=== PATIENT | female | born 1985 | race Two or more races ===

== ENCOUNTER 2024-07-13 04:14 | Inpatient (IN) | payer OTHER ==
[~2024-07-13] VITALS: Ht 152.4 cm; Wt 44.3 kg
[2024-07-13] MEDS: ALBUTEROL SULF 2.5 MG/0.5ML(0.5%) NEB SOLN NEB ONE (04:44)
[2024-07-13] MEDS: IPRATROPIUM BROM 0.5 MG/2.5ML INH SOL NEB ONE (04:44)
--- NOTE | 2024-07-13 05:59 | DVH ---
CHEST RADIOGRAPH Indication: SOB Technique: 2 views of the chest were obtained Comparison: None IMPRESSION: The heart appears normal in size. The lungs appear clear without focal airspace opacity, effusion, o r pneumothorax.
[2024-07-13] MEDS: methylPREDNISolone SOD SUCC 125 MG/2 ML VL IM ONE (06:15)
[2024-07-13 07:50] LABS: Basophils # (auto) 0.1 10 ^3/uL (0-0.2); Basophils % (auto) 0.7 % (0.0-2.0); Eosinophils # (auto) 0.9 10 ^3/uL (0-0.8); Eosinophils % (auto) 7.6 % (0.0-7.0); Hematocrit 43.2 % (36.0-46.0); Hemoglobin 14.5 g/dL (12.2-16.2); Lymphocytes # (auto) 1.6 10 ^3/uL (0.4-5.4); Lymphocytes % (auto) 12.9 % (10.0-50.0); Mean Corpuscular Hemoglobin 31.5 pg (28.0-32.0); Mean Corpuscular Hgb Conc. 33.5 g/dL (32.0-36.0); Mean Corpuscular Volume 94.1 fL (80.0-100.0); Monocytes # (auto) 0.3 10 ^3/uL (0-1.3); Monocytes % (auto) 2.2 % (0.0-12.0); Neutrophils # (auto) 9.3 10 ^3/uL (1.6-8.6); Neutrophils % (auto) 76.6 % (37.0-80.0); Platelet Count (auto) 390 10^3/uL (140-450); Red Cell Distribution Width 13.3 % (11.8-14.3); White Blood Cell 12.2 10^3/uL (4.4-10.8)
[2024-07-13 07:56] LABS: Chloride 106 mmol/L (98-107); Potassium 3.6 mmol/L (3.5-5.1); Sodium 139 mmol/L (136-145)
[2024-07-13 07:57] LABS: Anion Gap 5 (5-15); Calcium 9.8 mg/dL (8.7-10.4); Carbon Dioxide 28 mmol/L (20-31)
[2024-07-13 08:02] LABS: BUN/Creatinine Ratio 12.8 (10.0-20.0); Blood Urea Nitrogen 10 mg/dL (9-23)
[2024-07-13 08:10] LABS: Glucose 117 mg/dL (74-106)
--- NOTE | 2024-07-13 08:17 | ED.PDOC ---
SOB-HPI HPI Comments 39 year old female presents to the ED with a chief complaint of shortness of breath onset 3 days. Patient states she has been experiencing shortness of breath for the past 3 days and noticed it worsens with movement. Patient had an inhaler when she was in high school but has not used one since. PMHx asthma. Denies chest pain, abdominal pain, nausea, vomiting, diarrhea, headache, dizziness. No other symptoms or modifying factors present at this time. Chief Complaint: Asthma Time Seen by MD: 07:41 Reviewed notes: Medications, Allergies Information Source: Patient Mode of Arrival: Ambulatory Severity: Moderate Timing: Days Duration: Since onset Context: At Rest PE Risk Factors: None History of: Asthma Prehospital treatment: None Modifying Factors: Nothing Associated Signs and Symptoms: None Radiation: No Radiation Past Medical History PAST MEDICAL HISTORY: Asthma Surgical History: Denies all surgeries WALL ATTENDANT History: No Pertinent WALL ATTENDANT History Family History Family History: Unknown Social History Smoker: Non-Smoker Alcohol: Denies ETOH Use Drugs: Denies Drug Use Lives In: Home Constitutional: reports: fatigue; denies: chills, diaphoresis, fever, malaise, sweats, weakness, others EENTM: denies: blurred vision, double vision, ear bleeding, ear discharge, ear drainage, ear pain, ear ringing, eye pain, eye redness, hearing loss, mouth pain, mouth swelling, nasal discharge, nose bleeding, nose congestion, nose pain, photophobia, tearing, throat pain, throat swelling, voice changes, others Respiratory: reports: shortness of breath; denies: cough, hemoptysis, orthopnea, SOB at rest, SOB with excertion, stridor, wheezing, others Cardiovascular: denies: chest pain, dizzy spells, diaphoresis, Dyspnea on exertion, edema, irregular heart beat, left arm pain, lightheadedness, palpitations, PND, syncope, others Gastrointestinal: denies: abdomen distended, abdominal pain, blood streaked bowels, constipated, diarrhea, dysphagia, difficulty swallowing, hematemesis, melena, nausea, poor appetite, poor fluid intake, rectal bleeding, rectal pain, vomiting, others Genitourinary: denies: abnormal vagina bleeding, burning, dyspareunia, dysuria, flank pain, frequency, hematuria, incontinence, pain, , vagina discharge, urgency, others Neurological: denies: dizziness, fainting, headache, left sided numbness, left sided weakness, numbness, paresthesia, pre-existing deficit, right sided numbness, right sided weakness, seizure, speech problems, tingling, tremors, weakness, others Musculoskeletal: denies: back pain, gout, joint pain, joint swelling, muscle pain, muscle stiffness, neck pain, others Integumetry: denies: bruises, change in color, change in hair/nails, dryness, laceration, lesions, lumps, rash, wounds, others Allergic/Immunocompromised: denies: Difficulty Healing, Frequent Infections, Hives, Itching, others Hematologic/Lymphatic: denies: anemia, blood clots, easy bleeding, easy bruising, swollen glands, others Endocrine: denies: excessive hunger, excessive sweating, excessive thirst, excessive urination, flushing, intolerance to cold, intolerance to heat, unexplained weight gain, unexplained weight loss, others Psychiatric: denies: anxiety, bipolar disorder, depression, hopeless, panic disorder, schizophrenia, sleepless, suicidal, others All Other Systems: Reviewed and Negative Physical Exam General Appearance: Moderate Distress HEENT: Normal ENT Inspection, Pharynx Normal, TMs Normal Neck: Full Range of Motion, Non-Tender, Normal, Normal Inspection Respiratory: Accessory Muscle Use, Respiratory Distress, Wheezing Cardiovascular: No Edema, No JVD, No Murmur, No Gallop, Normal Peripheral Pulses, Regular Rate/Rhythm Breast Exam: Deferred Gastrointestinal: No Organomegaly, Non Tender, No Pulsatile Mass, Normal Bowel Sounds, Soft Genitalia: Deferred Pelvic: Deferred Rectal: Deferred Extremities: No calf tenderness, Normal capillary refill, Normal inspection, Normal range of motion, Non-tender, No pedal edema Musculoskeletal : Apperance: Normal Neurologic: Alert, catalyst supervisor II-XII nml as Tested, No Motor Deficits, Normal Affect, Normal Mood, No Sensory Deficits Cerebellar Function: NOT DONE Reflexes: NOT DONE Skin: Dry, Normal Color, Warm Peripheral Pulses: 3+ Radial (R), 3+ Radial (L) Lymphatic: No Adenopathy Was a procedure done? Was a procedure done?: No Differential Dx Differential Diagnosis: Anxiety, Asthma, Bronchitis, CHF, COPD X-Ray, Labs, Meds, VS Vital Signs Date Time Temp Pulse Resp B/P (MAP) Pulse Ox O2 Delivery O2 Flow Rate FiO2 07/13/24 06:03 98.3 77 18 121/75 (90) 97 98.3 07/13/24 04:45 18 95 Nasal Cannula* 2 28 07/13/24 04:36 98.2 73 22 134/66 (88) 88 07/13/24 04:36 22 88 Room Air* 0 21 Lab Test 07/13/24 07:40 07/13/24 07:36 Range/Units Urine Color Pending Urine Clarity Pending Urine pH Pending Urine Specific [place] Pending Urine Protein Pending Urine Ketones Pending Urine Blood Pending Urine Nitrite Pending Urine Bilirubin Pending Urine Urobilinogen Pending Urine Leukocyte Esterase Pending Urine RBC Pending Urine WBC Pending Urine Squamous Epithelial Cells Pending Urine Bacteria Pending Urine Glucose Pending White Blood Count 12.2 H 4.4-10.8 10^3/uL Red Blood Count 4.60 4.0-5.20 10^6/uL Hemoglobin 14.5 12.2-16.2 g/dL Hematocrit 43.2 36.0-46.0 % Mean Corpuscular Volume 94.1 80.0-100.0 fL Mean Corpuscular Hemoglobin 31.5 28.0-32.0 pg Mean Corpuscular Hemoglobin Concent 33.5 32.0-36.0 g/dL Red Cell Distribution Width 13.3 11.8-14.3 % Platelet Count 390 140-450 10^3/uL Mean Platelet Volume 6.3 L 6.9-10.8 fL Neutrophils (%) (Auto) 76.6 37.0-80.0 % Lymphocytes (%) (Auto) 12.9 10.0-50.0 % Monocytes (%) (Auto) 2.2 0.0-12.0 % Eosinophils (%) (Auto) 7.6 H 0.0-7.0 % Basophils (%) (Auto) 0.7 0.0-2.0 % Neutrophils # (Auto) 9.3 H 1.6-8.6 10 ^3/uL Lymphocytes # (Auto) 1.6 0.4-5.4 10 ^3/uL Monocytes # (Auto) 0.3 0-1.3 10 ^3/uL Eosinophils # (Auto) 0.9 H 0-0.8 10 ^3/uL Basophils # (Auto) 0.1 0-0.2 10 ^3/uL Nucleated Red Blood Cells 0.0 % D-Dimer, Quantitative 0.46 0.0-0.49 mg/L FEU Sodium Level 139 136-145 mmol/L Potassium Level 3.6 3.5-5.1 mmol/L Chloride Level 106 98-107 mmol/L Carbon Dioxide Level 28 20-31 mmol/L Anion Gap 5 5-15 Blood Urea Nitrogen 10 9-23 mg/dL Creatinine 0.78 0.550-1.02 mg/dL Glomerular Filtration Rate Calc 100 >90 mL/min BUN/Creatinine Ratio 12.8 10.0-20.0 Serum Glucose 117 H 74-106 mg/dL Calcium Level 9.8 8.7-10.4 mg/dL Current Medications Medications (Trade) Dose Ordered Sig/Teri Route Start Time Stop Time Status Last Admin Ipratropium [place] (Atrovent Medneb) 0.5 mg ONCE ONCE NEB 07/13/24 04:30 07/13/24 04:31 DC 07/13/24 04:44 Albuterol (Ventolin Medneb) 2.5 mg ONCE ONCE NEB 07/13/24 04:30 07/13/24 04:31 DC 07/13/24 04:44 Methylprednisolone Sodium Succinate (Solu Medrol) 125 mg ONCE ONCE IM 07/13/24 05:15 07/13/24 05:16 DC 07/13/24 06:15 Patient alert. Complaining of shortness a breath. Was given breathing treatment. Placed on oxygen. Using accessory muscles. WBC elevated. Early pneumonia. Pneumonitis. Was given steroid. Was given Rocephin. Was given azithromycin. Reviewed her history. Explained to the patient. Continue cardiac monitoring. Time of 1ST Reevaluation: 08:11 Reevaluation 1ST: Unchanged Patient Education/Counseling: Diagnosis, Treatment, Prognosis Family Education/Counseling: No Family Present Additional Information I reviewed the following notes from patient's past medical encounters: none The following tests were ordered, and results were reviewed by me: XY CHEST 2 VIEWS, CBC, D-DIMER, UA, BMP I reviewed and agreed with the following test results read by other providers: XY CHEST 2 VIEWS I discussed treatment and results with medical personnel and patient Departure 1 Departure Time of Disposition: 09:38 Impression: Primary Impression: Acute respiratory failure Qualified Codes: J96.01 - Acute respiratory failure with hypoxia Additional Impressions: Pneumonitis Asthma exacerbation Qualified Codes: J45.41 - Moderate persistent asthma with (acute) exacerbation Disposition: ADMITTED INPATIENT Admit to: Med Surg Condition: Guarded Critical Care Note Critical Care Time?: Yes (90 min-critical care time only) Stability Stability form required: No Heart Score Heart Score: Heart Score Response (Comments) Value History N/A 0 EKG N/A 0 Age N/A 0 Risk Factors N/A 0 Troponin N/A 0 Total 0 I personally scribed for GUERITA ALCARAZ MD ([email or web address]) on 07/13/24 at 08:17. Electronically submitted by Evonne Nguyen ([email or web address]). I personally scribed for GUERITA ALCARAZ MD ([email or web address]) on 07/13/24 at 09:10. Electronically submitted by Evonne Nguyen ([email or web address]). GUERITA ALCARAZ MD Jul 13, 2024 08:17
[2024-07-13 09:34] LABS: Urine Clarity TURBID (Clear); Urine Color DARK-RED (Yellow); Urine Specific Gravity 1.033 (1.001-1.035)
[2024-07-13 09:35] LABS: Urine Blood 3+ /uL (Negative)
[2024-07-13 09:37] LABS: Urine WBC Clumps FEW /hpf (None Seen)
[2024-07-13 09:38] LABS: Urine Bacteria FEW /hpf (None Seen); Urine Squamous Epithelial Cell FEW /hpf (<5); Urine WBC MODERATE /hpf (0 - 5)
[2024-07-13 09:39] LABS: Urine Protein, UAD 2+ (Negative); Urine Urobilinogen Normal (Negative)
[2024-07-13] MEDS: AZITHROMYCIN 500MG/ 250ML 250 ML IV ONE (10:27)
[2024-07-13] MEDS: cefTRIAXone 1GM/50ML D5W 50 ML IV ONE (10:27)
[2024-07-13 10:31] VITALS: O2SAT 99
[2024-07-13] MEDS ORDERED: ALBUTEROL SULF 2.5 MG/0.5ML(0.5%) NEB SOLN NEB PRN (14:30)
[2024-07-13] MEDS ORDERED: IPRATROPIUM BROM 0.5 MG/2.5ML INH SOL NEB PRN (14:30)
--- NOTE | 2024-07-13 14:38 | DVHHP2 ---
History of Present Illness Reason for Visit: Shortness of breath History of Present Illness This 39-year-old female with past medical history of asthma, presents in the ED with a chief complaint of shortness of breath. The patient reports progressive shortness of breath started three days ago. Denies fever, dizziness, chest p ain, palpitations, dyspnea on exertion, abdominal pain, nausea, hematuria, or flank pain. Patient states that she recently quit smoking cigarettes 10 days ago. Past medical history of smoking 1 pack per day for 25 years. Also reports ex marijuana use. Past Medical History Asthma Past Surgical History Denies Family History Reviewed, non-contributory to the management of this case. Past Social History Recently quit tobacco Ex marijuana use Denies EtOH use Review of Systems Constitutional: Yes: Malaise; No: Fever, Chills, Sweats, Weakness, Other Eyes: No: Pain, Vision change, Conjunctivae inflammation, Eyelid inflammation, Other, Redness ENT: No: Ear pain, Ear discharge, Nose pain, Nose discharge, Nose congestion, Mouth pain, Mouth swelling, Throat pain, Throat swelling, Other Respiratory: Shortness of breath; No: Cough, Dry, SOB with excertion, Wheezing, Hemoptysis, Pleuritic Pain, Sputum, Wheezing, Other Cardiovascular: No: Chest Pain, Palpitations, Orthopnea, Paroxysmal Noc. Dyspnea, Edema, Lt Headedness, Other Gastrointestinal: No: Nausea, Vomiting, Abdominal Pain, Diarrhea, Constipation, Melena, Hematochezia, Other Genitourinary: No Dysuria, No Frequency, No Incontinence, No Hematuria, No Retention, No Other Musculoskeletal: No: other, neck pain, shoulder pain, arm pain, back pain, hand pain, leg pain, foot pain Skin: No: Rash, Lesions, Jaundice, Bruising, Other Neurological: No: Weakness, Numbness, Incoordination, Change in speech, Confusion, Seizures, Other Allergies: Coded Allergies: NO KNOWN ALLERGIES (Unverified , 07/13/24) Exam Vital Signs Vital Signs Date Time Temp Pulse Resp B/P (MAP) Pulse Ox O2 Delivery O2 Flow Rate FiO2 07/13/24 10:31 99 Nasal Cannula* 2 28 07/13/24 10:29 98.5 80 18 136/87 (103) 98.5 General Appearance: Alert, Oriented X3, Cooperative, mild distress HEENT: Atraumatic, PERRLA, EOMI, Mucous membr. moist/pink Respiratory: Other (Diminished lung sounds) Cardiovascular: Regular rate, Normal S1, Normal S2, No murmurs Abdominal: Normal bowel sounds, Soft, No tenderness, No hepatospenomegaly Extremities: No clubbing, No cyanosis, No edema, Normal pulses, No tenderness/swelling Skin: No rashes, No breakdown, No significant lesion Neuro: Normal gait, Normal speech, Strength at 5/5 X4 ext, Normal tone Psych/Mental Status: Mental status NL Labs/Xrays Labs Test 07/13/24 07:40 07/13/24 07:36 Range/Units Urine Color Dark-red Yellow Urine Clarity Turbid H Clear Urine pH 6.0 5.0-9.0 Urine Specific [place] 1.033 1.001-1.035 Urine Protein 2+ H Negative Urine Ketones Negative Negative Urine Blood 3+ H Negative /uL Urine Nitrite Negative Negative Urine Bilirubin Negative Negative Urine Urobilinogen Normal Negative mg/dL Urine Leukocyte Esterase 2+ H Negative /uL Urine RBC Many 0 - 4 /hpf Urine WBC Moderate 0 - 5 /hpf Urine WBC Clumps Few None Seen /hpf Urine Squamous Epithelial Cells Few <5 /hpf Urine Bacteria Few H None Seen /hpf Urine Glucose Normal Normal mg/dL White Blood Count 12.2 H 4.4-10.8 10^3/uL Red Blood Count 4.60 4.0-5.20 10^6/uL Hemoglobin 14.5 12.2-16.2 g/dL Hematocrit 43.2 36.0-46.0 % Mean Corpuscular Volume 94.1 80.0-100.0 fL Mean Corpuscular Hemoglobin 31.5 28.0-32.0 pg Mean Corpuscular Hemoglobin Concent 33.5 32.0-36.0 g/dL Red Cell Distribution Width 13.3 11.8-14.3 % Platelet Count 390 140-450 10^3/uL Mean Platelet Volume 6.3 L 6.9-10.8 fL Neutrophils (%) (Auto) 76.6 37.0-80.0 % Lymphocytes (%) (Auto) 12.9 10.0-50.0 % Monocytes (%) (Auto) 2.2 0.0-12.0 % Eosinophils (%) (Auto) 7.6 H 0.0-7.0 % Basophils (%) (Auto) 0.7 0.0-2.0 % Neutrophils # (Auto) 9.3 H 1.6-8.6 10 ^3/uL Lymphocytes # (Auto) 1.6 0.4-5.4 10 ^3/uL Monocytes # (Auto) 0.3 0-1.3 10 ^3/uL Eosinophils # (Auto) 0.9 H 0-0.8 10 ^3/uL Basophils # (Auto) 0.1 0-0.2 10 ^3/uL Nucleated Red Blood Cells 0.0 % D-Dimer, Quantitative 0.46 0.0-0.49 mg/L FEU Sodium Level 139 136-145 mmol/L Potassium Level 3.6 3.5-5.1 mmol/L Chloride Level 106 98-107 mmol/L Carbon Dioxide Level 28 20-31 mmol/L Anion Gap 5 5-15 Blood Urea Nitrogen 10 9-23 mg/dL Creatinine 0.78 0.550-1.02 mg/dL Glomerular Filtration Rate Calc 100 >90 mL/min BUN/Creatinine Ratio 12.8 10.0-20.0 Serum Glucose 117 H 74-106 mg/dL Calcium Level 9.8 8.7-10.4 mg/dL PROCEDURE(s): CXR2 - CHEST TWO VIEWS ROUTINE REASON: SOB ORDER NUMBER(s): [id number], ACCESSION NUMBER(s): [id number] CHEST RADIOGRAPH Indication: SOB Technique: 2 views of the chest were obtained Comparison: None IMPRESSION: The heart appears normal in size. The lungs appear clear without focal airspace opacity, effusion, or pneumothorax. Assessment/Plan Assessment/Plan # Acute on chronic respiratory failure # asthma exacerbation O2 supplement to keep O2 Sat >92% Med neb treatment Steroids Pulmonary consult Chest x-ray in a.m. # acute UTI Ceftriaxone blood and Urine culture # Ex-tobacco and marijuana use, quit tobacco 10 days ago # hx of tobacco abuse 20 pack years Counseled Medical plan discussed with patient Plan discussed with: Patient My Orders Orders - PAOLA NIELSON OUTSOLE COMPRESSOR Procedure Category Date Status Time Admit ADMIT 07/13/24 Transmitted 14:28 Code Status CODE 07/13/24 Transmitted 14:28 Complete Blood Count LAB 07/14/24 Verified 04:00 Comprehensive LAB 07/14/24 Verified Metabolic Panel 04:00 Cardiac DIET 07/13/24 Transmitted Diet-2gna,Lofat,Lochol Dinner Condition: Fair KAL 07/13/24 In Process 14:28 Albuterol Medneb PHA 07/13/24 Transmitted (Ventolin Medneb) 14:30 Albuterol Medneb PHA 07/13/24 Transmitted (Ventolin Medneb) 18:00 Ipratropium Medneb PHA 07/13/24 Transmitted (Atrovent Medneb) 14:30 Ipratropium Medneb PHA 07/13/24 Transmitted (Atrovent Medneb) 18:00 Urine Bacterial MIGUEL ANGEL 07/13/24 Transmitted Culture 14:28 Blood Culture MIGUEL ANGEL 07/13/24 Transmitted 14:28 Ceftriaxone Ivpb PHA 07/14/24 Transmitted Rocephin 09:00 Methylprednisolone PHA 07/14/24 Transmitted Sod Succ (Solu Medrol 10:00 Chest Portable XY 07/14/24 Transmitted 04:00 Date of Service: Jul 13, 2024 Billing Provider: PAOLA NIELSON Common Visit Codes: [id number] INP/OBS CARE (HIGH) PAOLA NIELSON Jul 13, 2024 14:38
[2024-07-13 15:11] VITALS: BP 136/87; PULSE 80; RESP 18; TEMP 98.3; O2SAT 99
[2024-07-13 18:30] VITALS: PULSE 83; RESP 18; O2SAT 91
[2024-07-13] MEDS: IPRATROPIUM BROM 0.5 MG/2.5ML INH SOL NEB SCH (18:32)
[2024-07-13] MEDS: ALBUTEROL SULF 2.5 MG/0.5ML(0.5%) NEB SOLN NEB SCH (18:32)
[2024-07-13 18:34] VITALS: O2SAT 91
[2024-07-13 18:38] VITALS: PULSE 86; RESP 18; O2SAT 96
[2024-07-13 23:10] VITALS: O2SAT 99
--- NOTE | 2024-07-13 23:29 | DVHINCON2 ---
Date of service: Jul 13, 2024 Referring Physician Romario Valdez NP Reason for Consultation AHRF, asthma exacerbation History of Present Illness A 39-year-old woman with past medical history of asthma, presents to the ED with a chief complaint of shortness of breath. The patient reports progressive shortness of breath starting 3 days ago. Denies dyspnea on exertion. Denies other associated sx including fever, dizziness, chest pain, palpitations or abdominal pain. Patient recently quit smoking cigarettes 10 days ago, hx of smoking 1 pack per day for 25 years. Patient was admitted for further care and pulmonary consultation is requested for evaluation and management due to the above findings. Review of Systems: 14-point review of systems negative unless otherwise noted above. Past Medical History: Asthma Past Surgical History: Denies Medications: Reviewed. Allergies: No known drug allergies. Family History: No family history of premature CAD. No family history of lung disorders. Social History: Former smoker - recently quit smoking cigarettes 10 days ago. Hx of smoking 1 pack per day for 25 years No alcohol use. Prior hx of marijuana use. Allergies: Coded Allergies: NO KNOWN ALLERGIES (Unverified , 07/13/24) Home Meds Active Scripts Levofloxacin Hemihydrate (LEVAQUIN 500 MG) 500 Mg Tab, 1 TAB PO DAILY for 5 Days, #5 TAB Prov:ROMARIO VALDEZ NP 07/15/24 Albuterol Sulfate (VENTOLIN MDI) 90 Mcg Ih, 90 MCG IN Q4HP PRN for 30 Days, #1 INH Two puffs q.4 hours for acute asthma Prov:ROMARIO VALDEZ NP 07/15/24 Prednisone (Prednisone) 20 Mg Tab, 20 MG PO DAILY for 5 Days, #5 MG Prov:ROMARIO VALDEZ [employer] 07/15/24 Current Medications Current Medications Medications (Trade) Dose Ordered Sig/Teri Route PRN Reason Start Time Stop Time Status Last Admin Albuterol (Ventolin Medneb) 2.5 mg Q4HPRN PRN NEB SHORTNESS OF BREATH 07/13/24 14:30 Albuterol (Ventolin Medneb) 2.5 mg Q6HR NEB 07/13/24 18:00 07/13/24 18:32 Ipratropium [place] (Atrovent Medneb) 0.5 mg Q4HPRN PRN NEB SHORTNESS OF BREATH 07/13/24 14:30 Ipratropium [place] (Atrovent Medneb) 0.5 mg Q6HR NEB 07/13/24 18:00 07/13/24 18:32 Ceftriaxone Sodium 50 ml @ 100 mls/hr DAILY@09 IV 07/14/24 09:00 Methylprednisolone Sodium Succinate (Solu Medrol) 60 mg BID IV 07/14/24 10:00 Vital Signs Vital Signs Date Time Temp Pulse Resp B/P (MAP) Pulse Ox O2 Delivery O2 Flow Rate FiO2 07/13/24 21:24 97.7 98 20 100/74 (83) 94 97.7 07/13/24 18:34 Room Air* 0 21 Physical Exam Gen.: Patient lying in bed in no apparent distress. On supplemental oxygen. Head: Normocephalic, atraumatic. Eyes: EOMI/PERRLA. Ears: Normal hearing. Normal anatomy. Neck/trachea: Trachea midline, supple. Nose: Normal external anatomy. Mouth: Moist mucous membranes. Chest: Decreased air entry bilaterally. No wheezing or rhonchi. Cardiovascular: Positive S1, positive S2. Regular rate and rhythm. Abdomen: Positive bowel sounds in all 4 quadrants. Soft, non-tender, non- distended. : Deferred. Rectal: Deferred. Skin: Warm, dry. Intact. Extremities: 2+ radial pulses bilaterally. No lower extremity edema. Neuro: Awake, alert, oriented x3. No gross motor or sensory deficits. Cranial nerves II through XII intact. Gait not assessed. Labs/Diagnostic Data Labs Test 07/13/24 07:40 07/13/24 07:36 Range/Units Urine Color Dark-red Yellow Urine Clarity Turbid H Clear Urine pH 6.0 5.0-9.0 Urine Specific [place] 1.033 1.001-1.035 Urine Protein 2+ H Negative Urine Ketones Negative Negative Urine Blood 3+ H Negative /uL Urine Nitrite Negative Negative Urine Bilirubin Negative Negative Urine Urobilinogen Normal Negative mg/dL Urine Leukocyte Esterase 2+ H Negative /uL Urine RBC Many 0 - 4 /hpf Urine WBC Moderate 0 - 5 /hpf Urine WBC Clumps Few None Seen /hpf Urine Squamous Epithelial Cells Few <5 /hpf Urine Bacteria Few H None Seen /hpf Urine Glucose Normal Normal mg/dL White Blood Count 12.2 H 4.4-10.8 10^3/uL Red Blood Count 4.60 4.0-5.20 10^6/uL Hemoglobin 14.5 12.2-16.2 g/dL Hematocrit 43.2 36.0-46.0 % Mean Corpuscular Volume 94.1 80.0-100.0 fL Mean Corpuscular Hemoglobin 31.5 28.0-32.0 pg Mean Corpuscular Hemoglobin Concent 33.5 32.0-36.0 g/dL Red Cell Distribution Width 13.3 11.8-14.3 % Platelet Count 390 140-450 10^3/uL Mean Platelet Volume 6.3 L 6.9-10.8 fL Neutrophils (%) (Auto) 76.6 37.0-80.0 % Lymphocytes (%) (Auto) 12.9 10.0-50.0 % Monocytes (%) (Auto) 2.2 0.0-12.0 % Eosinophils (%) (Auto) 7.6 H 0.0-7.0 % Basophils (%) (Auto) 0.7 0.0-2.0 % Neutrophils # (Auto) 9.3 H 1.6-8.6 10 ^3/uL Lymphocytes # (Auto) 1.6 0.4-5.4 10 ^3/uL Monocytes # (Auto) 0.3 0-1.3 10 ^3/uL Eosinophils # (Auto) 0.9 H 0-0.8 10 ^3/uL Basophils # (Auto) 0.1 0-0.2 10 ^3/uL Nucleated Red Blood Cells 0.0 % D-Dimer, Quantitative 0.46 0.0-0.49 mg/L FEU Sodium Level 139 136-145 mmol/L Potassium Level 3.6 3.5-5.1 mmol/L Chloride Level 106 98-107 mmol/L Carbon Dioxide Level 28 20-31 mmol/L Anion Gap 5 5-15 Blood Urea Nitrogen 10 9-23 mg/dL Creatinine 0.78 0.550-1.02 mg/dL Glomerular Filtration Rate Calc 100 >90 mL/min BUN/Creatinine Ratio 12.8 10.0-20.0 Serum Glucose 117 H 74-106 mg/dL Calcium Level 9.8 8.7-10.4 mg/dL Assessment Impression Acute hypoxic respiratory failure Acute exacerbation of Asthma Eosinophilic Asthma Hx of nicotine dependence Plan: Supplemental oxygen 2 LPM via [place] Titrate to keep O2 sats above 92%. Taper O2 as tolerated. Continue bronchodilators. IV steroids Monitor renal function. Monitor electrolytes. Supplement as necessary. Monitor ins and outs. DVT prophylaxis. Prognosis: Poor given patient's multiple co-morbidities. Rest of plan per hospitalist and other consultants. Thank you, MELCHOR Valdez, for allowing me to participate in this patient's care. Further recommendations will depend on the patient's clinical course. Please do not hesitate to contact me if you have any questions or concerns. This medical document was created using an electronic medical record system with [employer] dictation system. Although these documentations are being carefully reviewed, there may still be some phonetic and typographical changes. The errors are purely typographical, due to imperfection on the software program, and do not reflect any compromise in the patient's medical care. Plan discussed with: Patient, Other (RN, MELCHOR Valdez/) TORY FINCH MD Jul 13, 2024 23:29
[2024-07-14] VITALS (12 sets, daily range): BP systolic 97–111; BP diastolic 59–60; PULSE 76–118; RESP 12–22; TEMP 98–98.2; O2SAT 92–99
[2024-07-14] MEDS: methylPREDNISolone SOD SUCC 125 MG/2 ML VL IV SCH (00:14)
--- NOTE | 2024-07-14 00:38 | DVH ---
CHEST RADIOGRAPH Indication: sob Technique: Single frontal view of the chest was obtained Comparison: None FINDINGS: Lines and Tubes: None Lungs: Clear Pleura: No effusion. No pneumothorax. Cardiomediastinal contours: Unremarkable Bones: Unremarkable IMPRESSION: 1. Clear lungs.
[2024-07-14] MEDS: ALBUTEROL SULF 2.5 MG/0.5ML(0.5%) NEB SOLN NEB SCH (01:48)
[2024-07-14] MEDS: IPRATROPIUM BROM 0.5 MG/2.5ML INH SOL NEB SCH ×2 (01:48→18:59)
[2024-07-14 06:52] LABS: Alanine Aminotransferase 23 U/L (7-40); Albumin 4.6 g/dL (3.2-4.8); Alkaline Phosphatase 57 U/L (46-116); Anion Gap 9 (5-15); Aspartate Aminotransferase 22 U/L (13-40); BUN/Creatinine Ratio 22.5 (10.0-20.0); Blood Urea Nitrogen 16 mg/dL (9-23); Calcium 9.9 mg/dL (8.7-10.4); Carbon Dioxide 24 mmol/L (20-31); Potassium 3.9 mmol/L (3.5-5.1); Sodium 141 mmol/L (136-145)
[2024-07-14 06:53] LABS: Total Protein 7.2 g/dL (5.7-8.2)
[2024-07-14 07:02] LABS: Bilirubin, Total 1.2 mg/dL (0.2-1.0); Chloride 108 mmol/L (98-107); Glucose 124 mg/dL (74-106)
[2024-07-14 07:13] LABS: Basophils # (auto) 0 10 ^3/uL (0-0.2); Basophils % (auto) 0.1 % (0.0-2.0); Eosinophils # (auto) 0 10 ^3/uL (0-0.8); Hemoglobin 13.6 g/dL (12.2-16.2); Lymphocytes # (auto) 0.6 10 ^3/uL (0.4-5.4); Mean Corpuscular Hemoglobin 31.2 pg (28.0-32.0); Mean Corpuscular Hgb Conc. 33.2 g/dL (32.0-36.0); Mean Corpuscular Volume 93.8 fL (80.0-100.0); Monocytes # (auto) 0.1 10 ^3/uL (0-1.3); Monocytes % (auto) 0.9 % (0.0-12.0); Neutrophils # (auto) 11.9 10 ^3/uL (1.6-8.6); Platelet Count (auto) 358 10^3/uL (140-450); Red Blood Cells 4.37 10^6/uL (4.0-5.20); Red Cell Distribution Width 13.1 % (11.8-14.3); White Blood Cell 12.7 10^3/uL (4.4-10.8)
[2024-07-14] MEDS: cefTRIAXone 1GM/50ML D5W 50 ML IV SCH (09:25)
[2024-07-14] MEDS ORDERED: methylPREDNISolone SOD SUCC 125 MG/2 ML VL IV SCH (10:00)
[2024-07-14] MEDS: BUDESONIDE (INHALATION) 0.5 MG/2 ML NEB NEB SCH (10:43)
--- NOTE | 2024-07-14 13:25 | DVHPN2 ---
Subjective States that her shortness of breath has improved. Does report having palpitations intermittently. Reviewed: Care Plan, H&P, Labs, Medications, Previous Orders Changes from previous H/P or p: Changes General: Per HPI Eyes: No Pain, No Vision change, No Conjunctivae inflammation, No Eyelid inflammation, No Other, No Redness ENT: No Ear pain, No Ear discharge, No Nose pain, No Nose discharge, No Nose congestion, No Mouth pain, No Mouth swelling, No Throat pain, No Throat swelling, No Other Cardiovascular: No Chest Pain, No Palpitations, No Orthopnea, No Paroxysmal Noc. Dyspnea, No Edema, No Lt Headedness, No Other Respiratory: No Cough, No Dry; Shortness of breath; No SOB with excertion, No Wheezing, No Hemoptysis, No Pleuritic Pain, No Sputum, No Other Gastrointestinal: No Nausea, No Vomiting, No Abdominal Pain, No Diarrhea, No Constipation, No Melena, No Hematochezia, No Other Genitourinary: No Dysuria, No Frequency, No Incontinence, No Hematuria, No Retention, No Other Musculoskeletal: No other, No neck pain, No shoulder pain, No arm pain, No back pain, No hand pain, No leg pain, No foot pain Skin: No Rash, No Lesions, No Jaundice, No Bruising, No Other Objective Vitals Vital Signs Date Time Temp Pulse Resp B/P (MAP) Pulse Ox O2 Delivery O2 Flow Rate FiO2 07/14/24 10:47 83 18 98 07/14/24 10:42 Nasal Cannula 2.0 07/14/24 10:42 28 07/14/24 09:03 98.0 97/59 (72) 98.0 General Appearance: Alert, Oriented X3, Cooperative, mild distress HEENT: Atraumatic, PERRLA Lungs: Clear to auscultation, Normal air movement Cardiovascular: Normal S1, Normal S2, Other (Sinus tachycardia) Abdomen: Normal bowel sounds, Soft, No tenderness, No hepatospenomegaly Genitourinary: No Apparent Abnormalities Neuro: Normal speech Psych/Mental Status: Mental status NL, Mood NL Medications Current Medications Medications Dose Ordered Sig/Teri Route Start Time Stop Time Status Last Admin Dose Admin Albuterol 2.5 mg Q4HPRN PRN NEB 07/13/24 14:30 Ipratropium [place] 0.5 mg Q4HPRN PRN NEB 07/13/24 14:30 Ceftriaxone Sodium 50 ml @ 100 mls/hr DAILY@09 IV 07/14/24 09:00 07/14/24 09:25 100 MLS/HR Albuterol 2.5 mg Q4HR NEB 07/14/24 02:00 07/14/24 10:42 2.5 MG Methylprednisolone Sodium Succinate 60 mg Q6HR IV 07/14/24 00:00 07/14/24 12:13 60 MG Budesonide 0.5 mg BID NEB 07/14/24 10:00 07/14/24 10:43 0.5 MG Ipratropium [place] 0.5 mg Q4HR NEB 07/14/24 02:00 07/14/24 10:43 0.5 MG Laboratory Results Laboratory Tests 07/14/24 05:34 Chemistry Test 07/14/24 05:34 Albumin 4.6 g/dL (3.2-4.8) Calcium Level 9.9 mg/dL (8.7-10.4) Total Protein 7.2 g/dL (5.7-8.2) LFT Test 07/14/24 05:34 Alanine Aminotransferase (ALT) 23 U/L (7-40) Alkaline Phosphatase 57 U/L (46-116) Aspartate Amino Transferase (AST) 22 U/L (13-40) Total Bilirubin 1.2 mg/dL (0.2-1.0) H Urinalysis Test 07/13/24 07:40 Urine Color Dark-red (Yellow) Urine Clarity Turbid (Clear) H Urine pH 6.0 (5.0-9.0) Urine Specific [place] 1.033 (1.001-1.035) Urine Protein 2+ (Negative) H Urine Ketones Negative (Negative) Urine Blood 3+ /uL (Negative) H Urine Nitrite Negative (Negative) Urine Bilirubin Negative (Negative) Urine Urobilinogen Normal mg/dL (Negative) Urine Leukocyte Esterase 2+ /uL (Negative) H Urine RBC Many /hpf (0 - 4) Urine WBC Moderate /hpf (0 - 5) Urine WBC Clumps Few /hpf (None Seen) Urine Squamous Epithelial Cells Few /hpf (<5) Urine Bacteria Few /hpf (None Seen) H Urine Glucose Normal mg/dL (Normal) Microbiology Microbiology Date/Time Source Procedure Growth Status 07/13/24 07:40 Voided Urine Urine Culture - Preliminary Resulted Labs and/or images reviewed: Labs reviewed by me, Image(s) reviewed by me Assessment/Plan Assessment/Plan Impression: -acute hypoxic respiratory failure -asthma exacerbation -history of nicotine dependence -marijuana use Plan: -assessed patient, reports that her dyspnea has improved. Patient was found to be tachycardic with a heart rate reaching 140 beats per minute with patient having verbal communication. Also reports having mild symptoms of palpitations. Patient reports that her wheezing has resolved. -stop IV Solu-Medrol, transitioned to prednisone 40 mg p.o. daily -stop albuterol, switched to Xopenex q.6 hours with Atrovent -continue Pulmicort -1 L normal saline -continue antibiotic therapy with Rocephin -reassess for discharge in a.m. Total time spent with patient discussing and formulating plan of care: 35 minutes. This medical document was created using an electronic medical record system with [employer] dictation system. Although this document has been carefully reviewed, there may still be some phonetic and typographical errors. These areas are purely typographical due to imperfections of the software programs, and do not reflect any compromise in the patient's medical care. Plan discussed with: Patient, Other (RN) Date of Service: Jul 14, 2024 Billing Provider: ROMEO VALDEZ NP Common Visit Codes: [id number] INP/OBS CARE(HIGH) ROMEO VALDEZ NP Jul 14, 2024 13:25
[2024-07-14] MEDS: SODIUM CHLORIDE 0.9% 1,000 ML IV ONE (13:30)
[2024-07-14] MEDS: LEVALBUTEROL HCL 1.25 MG/3 ML NEB NEB SCH (18:59)
--- NOTE | 2024-07-14 23:55 | DVHPN2 ---
Progress Note - Dictate Date Seen: Jul 14, 2024 Medical Necessity Reason Pt with a Central, PICC or Fol: No Subjective Patient seen and examined at bedside. Remains on supplemental oxygen Overnight events reviewed. vital signs Vital Sign Date Time Temp Pulse Resp B/P (MAP) Pulse Ox O2 Delivery O2 Flow Rate FiO2 07/14/24 20:00 118 18 95 Room Air* 0 21 07/14/24 18:00 98/63 (75) 07/14/24 09:03 98.0 98.0 medications Current Medications Medications Dose Ordered Sig/Teri Route Start Time Stop Time Status Last Admin Dose Admin Albuterol 2.5 mg Q4HPRN PRN NEB 07/13/24 14:30 Ceftriaxone Sodium 50 ml @ 100 mls/hr DAILY@09 IV 07/14/24 09:00 07/14/24 09:25 100 MLS/HR Budesonide 0.5 mg BID NEB 07/14/24 10:00 07/14/24 10:43 0.5 MG Ipratropium [place] 0.5 mg Q4HR NEB 07/14/24 02:00 07/14/24 10:43 0.5 MG Prednisone 40 mg DAILY PO 07/15/24 10:00 Levalbuterol HCl 0.625 mg Q6HR NEB 07/14/24 18:00 07/14/24 18:59 0.625 MG Ipratropium [place] 0.5 mg Q6HR NEB 07/14/24 18:00 07/14/24 18:59 0.5 MG objective Gen.: Patient lying in bed in no apparent distress. On supplemental oxygen. Head: Normocephalic, atraumatic. Eyes: EOMI/PERRLA. Ears: Normal hearing. Normal anatomy. Neck/trachea: Trachea midline, supple. Nose: Normal external anatomy. Mouth: Moist mucous membranes. Chest: Decreased air entry bilaterally. No wheezing or rhonchi. Cardiovascular: Positive S1, positive S2. Regular rate and rhythm. Abdomen: Positive bowel sounds in all 4 quadrants. Soft, non-tender, non- distended. : Deferred. Rectal: Deferred. Skin: Warm, dry. Intact. Extremities: 2+ radial pulses bilaterally. No lower extremity edema. Neuro: Awake, alert, oriented x3. No gross motor or sensory deficits. Cranial nerves II through XII intact. Gait not assessed. 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 Rest of plan as noted below. Plan: Supplemental oxygen Titrate to keep O2 sats above 92%. Continue bronchodilators. IV steroids Monitor renal function. Monitor electrolytes. Supplement as necessary. Monitor ins and outs. DVT prophylaxis. Prognosis: Poor given patient's multiple co-morbidities. Rest of plan per hospitalist and other consultants. Thank you, MELCHOR Manzano, for allowing me to participate in this patient's care. Further recommendations will depend on the patient's clinical course. Please do not hesitate to contact me if you have any questions or concerns. This medical document was created using an electronic medical record system with [employer] computerized dictation system. Although these documentations are being carefully reviewed, there may still be some phonetic and typographical changes. The errors are purely typographical, due to imperfection on the software program, and do not reflect any compromise in the patient's medical care. Plan discussed with: Patient, Other (RN) TORY FINCH MD Jul 14, 2024 23:55
[2024-07-15] VITALS (9 sets, daily range): BP systolic 103–111; BP diastolic 60–75; PULSE 77–102; RESP 14–17; TEMP 98.2–98.4; O2SAT 95–100
[2024-07-15] MEDS ORDERED: PRED20TA2 PO (08:40)
[2024-07-15] MEDS ORDERED: LEVO500T91 PO (08:40)
[2024-07-15] MEDS ORDERED: ALBUAER3 IN (08:40)
--- NOTE | 2024-07-15 08:45 | DVHDS2 ---
Discharge Summary Date of Admission Jul 13, 2024 at 14:28 Date of Discharge: Jul 15, 2024 Admitting Diagnosis Acute on chronic respiratory failure Labs/Diagnostic Data: Laboratory Results Test 07/14/24 05:34 07/13/24 07:40 07/13/24 07:36 White Blood Count 12.7 10^3/uL (4.4-10.8) Red Blood Count 4.37 10^6/uL (4.0-5.20) Hemoglobin 13.6 g/dL (12.2-16.2) Hematocrit 41.0 % (36.0-46.0) Mean Corpuscular Volume 93.8 fL (80.0-100.0) Mean Corpuscular Hemoglobin 31.2 pg (28.0-32.0) Mean Corpuscular Hemoglobin Concent 33.2 g/dL (32.0-36.0) Red Cell Distribution Width 13.1 % (11.8-14.3) Platelet Count 358 10^3/uL (140-450) Mean Platelet Volume 7.0 fL (6.9-10.8) Neutrophils (%) (Auto) 94.0 % (37.0-80.0) Lymphocytes (%) (Auto) 5.0 % (10.0-50.0) Monocytes (%) (Auto) 0.9 % (0.0-12.0) Eosinophils (%) (Auto) 0.0 % (0.0-7.0) Basophils (%) (Auto) 0.1 % (0.0-2.0) Neutrophils # (Auto) 11.9 10 ^3/uL (1.6-8.6) Lymphocytes # (Auto) 0.6 10 ^3/uL (0.4-5.4) Monocytes # (Auto) 0.1 10 ^3/uL (0-1.3) Eosinophils # (Auto) 0 10 ^3/uL (0-0.8) Basophils # (Auto) 0 10 ^3/uL (0-0.2) Nucleated Red Blood Cells 0.0 % Sodium Level 141 mmol/L (136-145) Potassium Level 3.9 mmol/L (3.5-5.1) Chloride Level 108 mmol/L (98-107) Carbon Dioxide Level 24 mmol/L (20-31) Anion Gap 9 (5-15) Blood Urea Nitrogen 16 mg/dL (9-23) Creatinine 0.71 mg/dL (0.550-1.02) Glomerular Filtration Rate Calc 112 mL/min (>90) BUN/Creatinine Ratio 22.5 (10.0-20.0) Serum Glucose 124 mg/dL (74-106) Calcium Level 9.9 mg/dL (8.7-10.4) Total Bilirubin 1.2 mg/dL (0.2-1.0) Aspartate Amino Transferase (AST) 22 U/L (13-40) Alanine Aminotransferase (ALT) 23 U/L (7-40) Alkaline Phosphatase 57 U/L (46-116) Total Protein 7.2 g/dL (5.7-8.2) Albumin 4.6 g/dL (3.2-4.8) Urine Color Dark-red (Yellow) Urine Clarity Turbid (Clear) Urine pH 6.0 (5.0-9.0) Urine Specific [place] 1.033 (1.001-1.035) Urine Protein 2+ (Negative) Urine Ketones Negative (Negative) Urine Blood 3+ /uL (Negative) Urine Nitrite Negative (Negative) Urine Bilirubin Negative (Negative) Urine Urobilinogen Normal mg/dL (Negative) Urine Leukocyte Esterase 2+ /uL (Negative) Urine RBC Many /hpf (0 - 4) Urine WBC Moderate /hpf (0 - 5) Urine WBC Clumps Few /hpf (None Seen) Urine Squamous Epithelial Cells Few /hpf (<5) Urine Bacteria Few /hpf (None Seen) Urine Glucose Normal mg/dL (Normal) D-Dimer, Quantitative 0.46 mg/L FEU (0.0-0.49) Other Laboratory Tests 07/14/24 05:34 Brief Hx & Hospital Course: History of Present Illness This 39-year-old female with past medical history of asthma, presents in the ED with a chief complaint of shortness of breath. The patient reports progressive shortness of breath started three days ago. Denies fever, dizziness, chest pain, palpitations, dyspnea on exertion, abdominal pain, nausea, hematuria, or flank pain. Patient states that she recently quit smoking cigarettes 10 days ago. Past medical history of smoking 1 pack per day for 25 years. Also reports ex marijuana use. Course of hospitalization: Patient was placed on IV Rocephin, IV hydration, bronchodilators, and IV Solu- Medrol. After assuming care of the patient yesterday, the patient was found to be free of wheezing, but noted to be severely tachycardic with heart rate reaching 130 beats per minute with conversation as well as the patient reporting some palpitations. Bronchodilators were changed to Xopenex and ipratropium every 6 hours. Patient's IV Solu-Medrol was switched to p.o. prednisone. Patient's heart rate is now improved. She continues to be on room air and dyspnea free. Urinalysis was found to be positive for UTI, with urine culture being contaminated. Patient will be discharged home, with a prescription provided for prednisone 20 mg p.o. daily x5 days, Ventolin MDI two puffs as needed every 4 hours for shortness of breaths, as well as continuation of antibiotic therapy with Levaquin 500 mg p.o. daily x5 days. She was instructed to follow up with her PCP in the next 1-2 weeks. All questions answered. Physical examination General: Alert and Oriented x3. No acute distress. Well-nourished. Eyes: EOMI. Anicteric. HENT: Moist mucous membranes. Lungs: Clear to auscultation bilaterally. No accessory muscle use. Cardiovascular: Regular rate and rhythm. No murmur. No JVD. Abdomen: Soft, non-tender and non-distended. No palpable masses. Extremities: No edema. Non-tender. Skin: No rashes or lesions. Warm. Neurologic: No focal neurological deficits. CN II-XII grossly intact, but not individually tested. Psychiatric: Cooperative. Appropriate mood and affect. Total time spent with patient discussing and formulating plan of care: 35 minutes. This medical document was created using an electronic medical record system with [employer] dictation system. Although this document has been carefully reviewed, there may still be some phonetic and typographical errors. These areas are purely typographical due to imperfections of the software programs, and do not reflect any compromise in the patient's medical care. Consults/Reason for consult Pulmonology: Acute asthma exacerbation Condition at Discharge: Fair Final Diagnosis/Problems List Acute hypoxic respiratory failure Secondary Diagnosis: -asthma exacerbation -history of nicotine dependence -marijuana use -UTI -leukocytosis, probable sirs response secondary to has been exacerbation Discharge Disposition: Home Discharge Instruct/Medications Diet: Regular Activity: No Restrictions, As Tolerated Follow Up/Referral: PCP in 1-2 weeks Medications: Prednisone 20 mg p.o. daily x5 days Levaquin 500 mg p.o. daily x5 days Ventolin 90 mcg two puffs q.4 hours as needed for acute asthma 36 Discharge Statement: "Patient was advised to return to the ER or call 911 if any headaches, dizziness, shortness of breath, chest pain, abdominal pain, bleeding, fevers, or worsening of medical condition. Patient was counseled about treatment plan, medications, possible side effects, patientverbalized understanding. All questions were answered to the best of my ability. This discharge took greater then 30 minutes in planning, reviewing documentation, counseling the patient, and discussing with other team members." ASSESSMENT ASSESSMENT Assessment Acute hypoxic respiratory failure Date of Service: Jul 15, 2024 Billing Provider: ROMEO VALDEZ NP Common Visit Codes: 33294-WNF/OBS DISCH DAY >30min ROMEO VALDEZ NP Jul 15, 2024 08:45
[2024-07-15] MEDS: predniSONE 20 MG TAB PO SCH (10:23)
--- NOTE | 2024-07-15 23:15 | DVHPN2 ---
Progress Note - Dictate Date Seen: Jul 15, 2024 Medical Necessity Reason Pt with a Central, PICC or Fol: No Subjective Patient seen and examined at bedside. Breathing comfortably on room air. Overnight events reviewed. vital signs Vital Sign Date Time Temp Pulse Resp B/P (MAP) Pulse Ox O2 Delivery O2 Flow Rate FiO2 07/15/24 09:00 98.2 95 15 107/63 (78) 95 98.2 07/15/24 08:00 Room Air* 0 21 Total Intake and Output 07/14/24 07/14/24 07/15/24 15:00 23:00 07:00 Intake Total 1050 ml 150 ml Balance 1050 ml 150 ml objective Gen.: Patient lying in bed in no apparent distress. On room air. Head: Normocephalic, atraumatic. Eyes: EOMI/PERRLA. Ears: Normal hearing. Normal anatomy. Neck/trachea: Trachea midline, supple. Nose: Normal external anatomy. Mouth: Moist mucous membranes. Chest: Decreased air entry bilaterally. No wheezing or rhonchi. Cardiovascular: Positive S1, positive S2. Regular rate and rhythm. Abdomen: Positive bowel sounds in all 4 quadrants. Soft, non-tender, non- distended. : Deferred. Rectal: Deferred. Skin: Warm, dry. Intact. Extremities: 2+ radial pulses bilaterally. No lower extremity edema. Neuro: Awake, alert, oriented x3. No gross motor or sensory deficits. Cranial nerves II through XII intact. Gait not assessed. 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 Supplemental oxygen PRN Continue bronchodilators Continue steroids Patient is stable for discharge from the pulmonary standpoint. Follow up in 1-2 weeks in Pulmonary Clinic d/t eosinophilic asthma. Labs and imaging reviewed. Rest of plan as noted below. Plan: Supplemental oxygen PRN Titrate to keep O2 sats above 92%. Continue bronchodilators. IV steroids Monitor renal function. Monitor electrolytes. Supplement as necessary. Monitor ins and outs. DVT prophylaxis. Prognosis: Poor given patient's multiple co-morbidities. Rest of plan per hospitalist and other consultants. Thank you, MELCHOR Manzano, for allowing me to participate in this patient's care. Further recommendations will depend on the patient's clinical course. Please do not hesitate to contact me if you have any questions or concerns. This medical document was created using an electronic medical record system with [employer] dictation system. Although these documentations are being carefully reviewed, there may still be some phonetic and typographical changes. The errors are purely typographical, due to imperfection on the software program, and do not reflect any compromise in the patient's medical care. Plan discussed with: Patient, Other (NI Golden) TORY FINCH MD Jul 15, 2024 23:15
== END 2024-07-15 11:40 | disposition home or self-care (01) | DRG 189 ==
LOC: ER 04:14 → TELE 14:28 → TELE-CENTR 07-14 21:00
PROVIDERS: ADMIT Registered Nurse; ATTEND Nurse Practitioner Acute Care
DX: J96.21 Acute and chronic respiratory failure with hypoxia (principal); N30.01 Acute cystitis with hematuria; J82.83 Eosinophilic asthma; J45.901 Unspecified asthma with (acute) exacerbation; R65.10 Systemic inflammatory response syndrome (SIRS) of non-infectious origin without acute organ dysfunction; J98.4 Other disorders of lung; F12.90 Cannabis use, unspecified, uncomplicated; Z87.891 Personal history of nicotine dependence
CPT/HCPCS: 36415; 71045; 71046; 80048; 80053; 81001; 85025; 85379; 87040; 87086; 94640; 99291; G0378